=== PATIENT | male | born 1945 | race African-American/Black ===

== ENCOUNTER 2016-07-03 07:35 | Emergency (ER) | payer OTHER ==
[~2016-07-03] VITALS: Ht 177.8 cm; Wt 77.1 kg
[2016-07-03 07:54] VITALS: BP 163/79
== END 2016-07-03 08:53 | disposition home or self-care (01) ==
LOC: ER 07:35
DX: J95.03 Malfunction of tracheostomy stoma (principal); J44.9 Chronic obstructive pulmonary disease, unspecified; J45.909 Unspecified asthma, uncomplicated; E11.9 Type 2 diabetes mellitus without complications; F17.210 Nicotine dependence, cigarettes, uncomplicated